=== PATIENT | female | born 1950 | race Caucasian/White ===

== ENCOUNTER → 2017-01-30 | Outpatient (REF) | payer MEDICARE, BC, OTHER ==
[2017-02-01 14:18] LABS: SJOGREN'S ANTI SS-A <0.2 AI (0.0-0.9); SJOGREN'S ANTI SS-B <0.2 AI (0.0-0.9)
== END ==
LOC: M LABNEURO 12:34
PROVIDERS: ATTEND Psychiatry & Neurology Neurology
DX: R79.89 Other specified abnormal findings of blood chemistry (principal)

== ENCOUNTER → 2017-03-22 | Outpatient (CLI) | payer MEDICARE, BC, OTHER ==
--- NOTE | 2017-03-22 08:28 | REP ---
Clinical: Pulmonary nodule. Comparison: Multiple examinations through 07/22/2013. Findings: The bilateral lung aguilar are essentially well-aerated, symmetric and clear. No acute pulmonary consolidation, significant nodule or mass lesion is appreciated. A 7 mm noncalcified lesion in the left upper lobe as well as a small focus of calcification in the posterior left upper lobe adjacent to the fissure remain stable. No pleural effusion/reaction. No pneumothorax. Tracheobronchial tree is patent. Mediastinum demonstrates atherosclerotic changes to the thoracic aorta and coronary arteries without aortic aneurysm or cardiomegaly appreciated. Musculoskeletal structures demonstrate age-related changes without focal osseous abnormality. Upper abdomen demonstrates stable hepatic cysts. Impression: 1. Stable appearance to the 7 mm nodule in the left upper lobe unchanged compared to 2013 and requiring no further investigation. 2. No acute mediastinal or pleuroparenchymal process appreciated. 3. Atherosclerotic changes to the aorta and coronary arteries. 4. Stable hepatic hypodensities likely representing cysts. Signed by Pedro Pablo Allen MD 03/22/2017 08:20 A
== END ==
LOC: M RAD 07:33
PROVIDERS: ATTEND Internal Medicine Pulmonary Disease
DX: R91.8 Other nonspecific abnormal finding of lung field (principal)

== ENCOUNTER 2017-10-15 11:52 | Day surgery (SDC) | payer MEDICARE, BC, OTHER ==
[2017-10-15] MEDS: NS 1,000 ML IV (12:10)
[2017-10-15] MEDS ORDERED: PROPOFOL 200 MG/20 ML VIAL As Ordered (12:45)
== END 2017-10-15 13:32 | disposition home or self-care (01) ==
LOC: M OPP 11:52
DX: Z12.11 Encounter for screening for malignant neoplasm of colon (principal); K64.0 First degree hemorrhoids; D12.3 Benign neoplasm of transverse colon; K57.30 Diverticulosis of large intestine without perforation or abscess without bleeding; Z86.010 Personal history of colon polyps; F17.210 Nicotine dependence, cigarettes, uncomplicated; K21.9 Gastro-esophageal reflux disease without esophagitis; E78.00 Pure hypercholesterolemia, unspecified; I10 Essential (primary) hypertension; J44.9 Chronic obstructive pulmonary disease, unspecified; E05.90 Thyrotoxicosis, unspecified without thyrotoxic crisis or storm; Z79.82 Long term (current) use of aspirin; Z79.899 Other long term (current) drug therapy; Z88.5 Allergy status to narcotic agent; Z88.8 Allergy status to other drugs, medicaments and biological substances; Z85.828 Personal history of other malignant neoplasm of skin; Z90.710 Acquired absence of both cervix and uterus; I83.91 Asymptomatic varicose veins of right lower extremity; Z86.69 Personal history of other diseases of the nervous system and sense organs
CPT/HCPCS: 45380

== ENCOUNTER 2018-03-04 08:34 | Emergency (ER) | payer MEDICARE, BC, OTHER ==
[2018-03-04] MEDS: DERMABOND TOPICAL SKIN ADHESIVE TOP (10:30)
[2018-03-04] MEDS: LIDOCAINE W/EPINEPHRINE 1% 20ML VIAL SC (11:00)
[2018-03-04] MEDS ORDERED: ACETAMINOPHEN 325 MG TAB PO (15:00)
== END 2018-03-04 11:53 | disposition home or self-care (01) ==
LOC: M ED 08:34
DX: S51.811A Laceration without foreign body of right forearm, initial encounter (principal); S50.11XA Contusion of right forearm, initial encounter; W22.8XXA Striking against or struck by other objects, initial encounter; Y92.013 Bedroom of single-family (private) house as the place of occurrence of the external cause; I10 Essential (primary) hypertension; J44.9 Chronic obstructive pulmonary disease, unspecified; E78.5 Hyperlipidemia, unspecified; Z79.899 Other long term (current) drug therapy; Z79.82 Long term (current) use of aspirin; Z88.5 Allergy status to narcotic agent; Z88.8 Allergy status to other drugs, medicaments and biological substances; F17.210 Nicotine dependence, cigarettes, uncomplicated

== ENCOUNTER 2018-03-04 14:07 | Emergency (ER) | payer MEDICARE, BC, OTHER | END 2018-03-04 15:21 | disposition home or self-care (01) | LOC: M ED 14:07 | DX: S51.811A Laceration without foreign body of right forearm, initial encounter (principal); S50.11XA Contusion of right forearm, initial encounter; S51.811D Laceration without foreign body of right forearm, subsequent encounter; S50.11XD Contusion of right forearm, subsequent encounter; W22.8XXA Striking against or struck by other objects, initial encounter; Y92.013 Bedroom of single-family (private) house as the place of occurrence of the external cause; I10 Essential (primary) hypertension; E78.5 Hyperlipidemia, unspecified; J44.9 Chronic obstructive pulmonary disease, unspecified; E05.90 Thyrotoxicosis, unspecified without thyrotoxic crisis or storm; Z79.899 Other long term (current) drug therapy; Z79.82 Long term (current) use of aspirin; Z88.5 Allergy status to narcotic agent; Z88.8 Allergy status to other drugs, medicaments and biological substances | CPT/HCPCS: 99283 ==

== ENCOUNTER → 2018-10-21 | Outpatient (CLI) | payer MEDICARE, BC ==
[~2018-10-21] MED LIST: ASPI1TAB PO; CALCTAB97 PO; DONETAB6 PO; DULE200A IN; EZET1TAB7 PO; FOLI5INJ2 PO; KLON1TAB PO; METO1TAB32 PO; MULTCAP11 PO; VENTAER IN; VITA100067 PO; VITA100072 PO; VIVE0.05 TD; VYTO10TA25 PO
--- NOTE | 2018-10-21 11:53 | REP ---
Clinical: COPD . Comparison: 11/15/2015 . Technique: PA and lateral. Findings: The mediastinum and cardiac silhouette are normal. A rounded density superimposed over the cardiac silhouette on frontal radiograph appears to correspond to a 1.7 cm rounded lesion in the left breast and warrants further investigation. The lung aguilar are clear. No consolidation, effusion, or pneumothorax. Skeletal structures are intact. Impression: 1. No obvious acute cardiopulmonary process. 2. There appears to be a 1.7 cm rounded lesion which on frontal radiograph is superimposed over the cardiac silhouette and left lower lobe which on lateral radiograph may represent rounded lesion in the left breast. Chest CT with contrast and mammogram follow-up may be warranted. Electronically Signed by Pedro Pablo Allen MD 10/21/2018 11:44 A
== END ==
LOC: M RAD 11:01
PROVIDERS: ATTEND Internal Medicine Pulmonary Disease
DX: R91.8 Other nonspecific abnormal finding of lung field (principal); J44.9 Chronic obstructive pulmonary disease, unspecified

== ENCOUNTER → 2018-11-15 | Outpatient (CLI) | payer MEDICARE, BC, OTHER ==
--- NOTE | 2018-11-15 16:11 | REP ---
Low-dose lung screening CT without IV contrast: Comparisons are 03/22/2017 07/22/2013: The study is performed without IV contrast. Images are presented at lung windowing only. There is a known 7 mm left upper lobe lung nodule on image 40, unchanged from 03/22/2017. This measured 6 mm on 07/22/2013 and is likely benign. There is a new ground-glass 7 mm nodule in the left upper lobe on image 34, not present previously. There is a new size solid 7 mm nodule in the right lower lobe on image 55, not present previously. There is a new infiltrate like density in the infrahilar right middle lobe, also not present previously. Infiltrative neoplasm versus infiltrate are possibilities. Correlate clinically. There are no pleural effusions. Impression: The most suspicious nodule is the right lower lobe semi solid 7 mm nodule. This is a category III lung nodule, the probability of malignancy is 110%. Six by follow-up low-dose lung CT is recommended for this lesion. The infiltrate like density in the right middle lobe should be followed based on clinical findings. Electronically Signed by Jacky Javier MD 11/15/2018 04:02 P
== END ==
LOC: M RAD 07:56
PROVIDERS: ATTEND Internal Medicine Pulmonary Disease
DX: R91.1 Solitary pulmonary nodule (principal); F17.210 Nicotine dependence, cigarettes, uncomplicated

== ENCOUNTER 2019-03-20 09:08 | Day surgery (SDC) | payer MEDICARE, BC, OTHER ==
[~2019-03-20] VITALS: Ht 152.4 cm; Wt 38.0 kg
[~2019-03-20 09:08] MED LIST changes: +AREDS PO; -ASPI1TAB PO; +ASPI81TA26 PO; +BALANCED SALT IRRIGATION SOLUTION 500ML BAG (FOR OR EYE MACHINE) As Ordered ONE; +DUOVISC (0.50ML VISCOAT/0.55ML PROVISC) OPHTH KIT As Ordered ONE; +FOLI1TAB11 PO; +LIDOCAINE 0.75%/EPINEPHRINE 0.025% IN BSS 1ML SYR INTRACAMERAL (OR ONLY) As Ordered ONE; +MULTCAP PO; +OFLOXACIN 0.3 % (OCUFLOX) OPTH SOL 5ML OS ONE; +OYST1TAB PO; +PHENYLEPHRINE 2.5% OPHTH SOL 2ML OS ONE; +POVIDONE-IODINE 5% OPHTH PREP SOL 30ML As Ordered ONE; +PROPARACAINE 0.5% OPHTH SOL 15ML OS ONE; +TROPICAMIDE 1% OPHTH SOLN 2ML OS ONE; +VITA100018 PO; -VITA100072 PO; +VITAD1000T PO
[2019-03-20] MEDS ORDERED: CEFUROXIME 1MG/0.1ML INTRACAMERAL INJ ONE (09:09)
[2019-03-20] MEDS ORDERED: fentaNYL 100 MCG/2 ML INJECTION (J3010) As Ordered ONE (10:30)
[2019-03-20] MEDS ORDERED: MIDAZOLAM INJ 2 MG/2 ML VIAL (J2250) As Ordered ONE (10:30)
[2019-03-20 11:24] VITALS: BP 111/56
--- NOTE | 2019-03-21 08:24 | RO ---
DATE OF PROCEDURE: 03/20/2019 PREOPERATIVE DIAGNOSIS: 1. Visually significant nuclear sclerotic cataract left eye. POSTOPERATIVE DIAGNOSIS: 1. Visually significant nuclear sclerotic cataract left eye. PROCEDURE: 1. Cataract extraction with use of phacoemulsification and placement of intraocular lens, AU00T0, 25.0 D, left eye. SURGEON: Reddy Ardon DO MAINTENANCE PLUMBER: None. ANESTHESIA: Local with monitored anesthesia care (MAC). COMPLICATIONS: None. POSTOPERATIVE CONDITION: Stable. INDICATIONS FOR SURGERY: 1. Blurred vision affecting patients activities of daily living. DESCRIPTION OF PROCEDURE: The patient was seen in the preoperative area and properly identified. The correct operative eye was identified and marked. The patient received topical anesthetic, antibiotics, and topical dilating drops. The patient was then transferred to the operating room. The correct side was re-identified, and a time-out was performed. The eye was prepped and draped in a sterile fashion. The eyelids were isolated with Tegaderm tape, and the lids were held open with an adjustable speculum. A 1.0 mm paracentesis incision was made. Intraocular preservative-free Shugarcaine was then injected into the anterior chamber. Viscoelastic was then injected into the anterior chamber through the paracentesis. Using a 2.4 mm sharp-tipped keratome, the anterior chamber was entered via a temporal clear cornea incision. A continuous curvilinear capsulorrhexis was created with Utrata forceps. Hydrodissection was performed with balanced salt solution (BSS) on a blunt cannula until the nucleus was able to rotate freely. The crystalline lens was phacoemulsified and aspirated. Irrigation/aspiration was used to remove the cortical material. Cohesive viscoelastic was placed into the capsular bag to deepen it. The implant was placed into the capsular bag and allowed to unfold. Placement was confirmed by visualizing the anterior capsulorrhexis. Irrigation/aspiration was used to remove the viscoelastic. The clear corneal incision was hydrated with BSS on a blunt cannula. The lens was well positioned. The incisions were then tested for leaks and found to be negative. The eye was then palpated for appropriate pressure and adjusted accordingly with BSS. The eyelid speculum was then carefully removed. A shield was placed over the eye. The patient tolerated the procedure well and was discharged to the recovery unit in a stable condition.
== END 2019-03-20 11:45 | disposition home or self-care (01) ==
LOC: M SDC 09:08
PROVIDERS: ATTEND Ophthalmology
DX: H25.12 Age-related nuclear cataract, left eye (principal); I10 Essential (primary) hypertension; E78.5 Hyperlipidemia, unspecified; E05.90 Thyrotoxicosis, unspecified without thyrotoxic crisis or storm; K21.9 Gastro-esophageal reflux disease without esophagitis; J44.9 Chronic obstructive pulmonary disease, unspecified; Z88.8 Allergy status to other drugs, medicaments and biological substances; Z79.82 Long term (current) use of aspirin; Z79.899 Other long term (current) drug therapy; Z92.3 Personal history of irradiation; F17.210 Nicotine dependence, cigarettes, uncomplicated
CPT/HCPCS: 66984; J2250; J3010; V2632

== ENCOUNTER 2019-05-01 10:45 | Day surgery (SDC) | payer MEDICARE, BC, OTHER ==
[~2019-05-01] VITALS: Ht 152.4 cm; Wt 37.6 kg
[~2019-05-01 10:45] MED LIST changes: +CEFUROXIME 1MG/0.1ML INTRACAMERAL INJ As Ordered ONE; +IRON65TA2 PO; -LIDOCAINE 0.75%/EPINEPHRINE 0.025% IN BSS 1ML SYR INTRACAMERAL (OR ONLY) As Ordered ONE; +MIDAZOLAM INJ 2 MG/2 ML VIAL (J2250) As Ordered ONE; +OFLOXACIN 0.3 % (OCUFLOX) OPTH SOL 5ML OD ONE; -OFLOXACIN 0.3 % (OCUFLOX) OPTH SOL 5ML OS ONE; +PHENYLEPHRINE 2.5% OPHTH SOL 2ML OD ONE; -PHENYLEPHRINE 2.5% OPHTH SOL 2ML OS ONE; +PROPARACAINE 0.5% OPHTH SOL 15ML OD ONE; -PROPARACAINE 0.5% OPHTH SOL 15ML OS ONE; +TROPICAMIDE 1% OPHTH SOLN 2ML OD ONE; -TROPICAMIDE 1% OPHTH SOLN 2ML OS ONE; +fentaNYL 100 MCG/2 ML INJECTION (J3010) As Ordered ONE
[2019-05-01] MEDS ORDERED: LIDOCAINE 2% W/EPIN INJ 20ML **PRES FREE XX ONE (12:38)
[2019-05-01 13:05] VITALS: BP 143/73
--- NOTE | 2019-05-05 11:13 | RO ---
DATE OF PROCEDURE: 05/01/2019 PREOPERATIVE DIAGNOSIS: 1. Visually significant nuclear sclerotic cataract right eye. POSTOPERATIVE DIAGNOSIS: 1. Visually significant nuclear sclerotic cataract right eye. PROCEDURE: 1. Cataract extraction with use of phacoemulsification and placement of intraocular lens, AU00T0 25 D, right eye. SURGEON: Reddy Ardon DO AQUATIC PERFORMER: None. ANESTHESIA: Local with monitored anesthesia care (MAC). COMPLICATIONS: None. POSTOPERATIVE CONDITION: Stable. INDICATIONS FOR SURGERY: 1. Blurred vision affecting patients activities of daily living. DESCRIPTION OF PROCEDURE: The patient was seen in the preoperative area and properly identified. The correct operative eye was identified and marked. The patient received topical anesthetic, antibiotics, and topical dilating drops. The patient was then transferred to the operating room. The correct side was re-identified, and a time-out was performed. The eye was prepped and draped in a sterile fashion. The eyelids were isolated with Tegaderm tape, and the lids were held open with an adjustable speculum. A 1.0 mm paracentesis incision was made. Intraocular preservative-free Shugarcaine was then injected into the anterior chamber. Viscoelastic was then injected into the anterior chamber through the paracentesis. Using a 2.4 mm sharp-tipped keratome, the anterior chamber was entered via a temporal clear cornea incision. A continuous curvilinear capsulorrhexis was created with Utrata forceps. Hydrodissection was performed with balanced salt solution (BSS) on a blunt cannula until the nucleus was able to rotate freely. The crystalline lens was phacoemulsified and aspirated. Irrigation/aspiration was used to remove the cortical material. Cohesive viscoelastic was placed into the capsular bag to deepen it. The implant was placed into the capsular bag and allowed to unfold. Placement was confirmed by visualizing the anterior capsulorrhexis. Irrigation/aspiration was used to remove the viscoelastic. The clear corneal incision was hydrated with BSS on a blunt cannula. The lens was well positioned. The incisions were then tested for leaks and found to be negative. The eye was then palpated for appropriate pressure and adjusted accordingly with BSS. The eyelid speculum was then carefully removed. A shield was placed over the eye. The patient tolerated the procedure well and was discharged to the recovery unit in a stable condition. HEATHER
== END 2019-05-01 13:19 | disposition home or self-care (01) ==
LOC: M SDC 10:45
PROVIDERS: ATTEND Ophthalmology
DX: H25.11 Age-related nuclear cataract, right eye (principal); I10 Essential (primary) hypertension; J44.9 Chronic obstructive pulmonary disease, unspecified; Z88.8 Allergy status to other drugs, medicaments and biological substances; Z92.3 Personal history of irradiation; F17.210 Nicotine dependence, cigarettes, uncomplicated; Z79.82 Long term (current) use of aspirin; Z79.899 Other long term (current) drug therapy
CPT/HCPCS: 66984; J2250; J3010; V2632

== ENCOUNTER → 2019-09-01 | Outpatient (CLI) | payer MEDICARE, BC, OTHER ==
[~2019-09-01] MED LIST changes: -BALANCED SALT IRRIGATION SOLUTION 500ML BAG (FOR OR EYE MACHINE) As Ordered ONE; -CEFUROXIME 1MG/0.1ML INTRACAMERAL INJ As Ordered ONE; +CHOL100029 PO; -DUOVISC (0.50ML VISCOAT/0.55ML PROVISC) OPHTH KIT As Ordered ONE; -EZET1TAB7 PO; +EZET1TAB8 PO; -MIDAZOLAM INJ 2 MG/2 ML VIAL (J2250) As Ordered ONE; -OFLOXACIN 0.3 % (OCUFLOX) OPTH SOL 5ML OD ONE; -PHENYLEPHRINE 2.5% OPHTH SOL 2ML OD ONE; -POVIDONE-IODINE 5% OPHTH PREP SOL 30ML As Ordered ONE; -PROPARACAINE 0.5% OPHTH SOL 15ML OD ONE; -TROPICAMIDE 1% OPHTH SOLN 2ML OD ONE; -VITAD1000T PO; -fentaNYL 100 MCG/2 ML INJECTION (J3010) As Ordered ONE
--- NOTE | 2019-09-01 10:21 | REP ---
CT CHEST WITHOUT CONTRAST: HISTORY: Other nonspecific abnormal finding of the lung field. COMPARISON STUDY: Most recent comparison chest CT study in the patient's electronic x-ray jacket is from February 11, 2019 and the most remote is dated June 04, 2007. CT FINDINGS: Vascular calcification is noted. No pleural or pericardial effusion is seen. There are hepatic cysts again noted unchanged. No adrenal lesion is seen. No bony abnormality is seen. There are patchy areas of peribronchovascular alveolar consolidation principally affecting the left lower lobe but with smaller areas noted in the right middle lobe distribution and right lower lobe as well as lingular areas consistent with pneumonia. These changes are new. There is a well circumscribed 8 mm nodule in the left upper lobe on page 48 of 110 in series 201 of today's study. This has very gradually enlarged over the year since the 2012 prior study when it was measured at 5.5 mm. In the posterior segment of the left upper lobe, there are two tiny nodules adjacent to one another measuring 5 mm in aggregate greatest dimension. These are also visible dating back to 2012 and are perhaps only very slightly larger. No other significant pulmonary nodule is appreciated. There is no evidence of mass or adenopathy appreciated. IMPRESSION: 1. Patchy new alveolar infiltrates consistent with pneumonia, most prominently affecting the left lower lobe. 2. Previously noted left upper lobe nodules show very gradual enlargement. No new pulmonary nodule is appreciated. Electronically Signed by Todd Abad MD 09/01/2019 12:14 P
== END ==
LOC: M RAD 07:41
PROVIDERS: ATTEND Internal Medicine Pulmonary Disease
DX: R91.8 Other nonspecific abnormal finding of lung field (principal)

== ENCOUNTER → 2019-11-25 | Outpatient (CLI) | payer MEDICARE, BC, OTHER ==
--- NOTE | 2019-11-25 17:33 | REPVR ---
PROCEDURE INFORMATION: Exam: CT Chest Without Contrast Exam date and time: 11/25/2019 1:46 PM Age: 69 years old Clinical indication: Chest pain; Additional info: Non specific abnormal finding of lung field TECHNIQUE: Imaging protocol: Computed tomography of the chest without contrast. 3D rendering: MIP and/or 3D reconstructed images were created by the technologist. Radiation optimization: All CT scans at this facility use at least one of these dose optimization techniques: automated exposure control; mA and/or kV adjustment per patient size (includes targeted exams where dose is matched to clinical indication); or iterative reconstruction. COMPARISON: CT Chest without contrast 09/01/2019 8:01 AM FINDINGS: Lungs: 7 mm noncalcified peripheral pulmonary parenchymal nodule in the left upper lobe. Multiple 1-2 mm peripheral noncalcified pulmonary parenchymal nodules demonstrated (for example series through 1 image 13, image 20, image 43). These are likely postinflammatory. Well inflated lungs consistent with COPD. Pleural space: Unremarkable. No pneumothorax. No pleural effusion. Heart: There is moderate atherosclerotic calcification of the coronary arteries. Aorta: The aorta demonstrates mild atherosclerotic calcification. Diffusely ectatic thoracic aorta. Lymph nodes: Unremarkable. No enlarged lymph nodes. Liver: Multiple hepatic cysts measure up to 2 cm in the right lobe of the liver. No complex features. Bones/joints: Unremarkable. No acute fracture. Soft tissues: Unremarkable. IMPRESSION: 1. 7 mm noncalcified peripheral pulmonary parenchymal nodule in the left upper lobe. For both low risk and high risk patients, consider CT at 3 months, PET/CT or biopsy. (Broderick et al., Fleischner Society, 2017) 2. Multiple 1-2 mm peripheral noncalcified pulmonary parenchymal nodules demonstrated (for example series through 1 image 13, image 20, image 43). These are likely postinflammatory. Follow-up as described in impression 1. 3. Coronary artery disease. 4. Ectatic atherosclerotic thoracic aorta. 5. COPD. Electronically signed by: Ruiz Miller On 11/25/2019 17:33:33 PM
== END ==
LOC: M RAD 13:26
PROVIDERS: ATTEND Internal Medicine Pulmonary Disease
DX: R91.8 Other nonspecific abnormal finding of lung field (principal); J44.9 Chronic obstructive pulmonary disease, unspecified; I25.10 Atherosclerotic heart disease of native coronary artery without angina pectoris; I77.810 Thoracic aortic ectasia

== ENCOUNTER → 2020-04-14 | Outpatient (CLI) | payer BC, OTHER ==
--- NOTE | 2020-04-14 10:02 | REP ---
Clinical: Follow-up pulmonary nodule. Technique: Axial noncontrast images from the thoracic inlet to the upper abdomen with coronal and sagittal re-formations. Comparison: 11/25/2019, 11/15/2018, 03/22/2017. Findings: 8.5 mm noncalcified nodule in the anterior left upper lobe (image 44) remains relatively similar as compared through 2017. Scattered chronic relatively stable subtle pleuroparenchymal changes including small area of non solid opacity in the periphery of the left upper lobe (image 38) and very small scattered densities measuring up to 2 mm remain essentially unchanged. No new significant consolidation, nodule or mass lesion appreciated. No pleural effusion. No pneumothorax. Small amount of inspissated material suggested within the trachea and right mainstem bronchus. No obvious adenopathy is appreciated although evaluation is somewhat limited due to the lack of contrast enhancement. Stable appearance and atherosclerotic changes to the thoracic aorta and coronary arteries noted. Musculoskeletal structures demonstrate age-related changes without acute osseous abnormality. Visualized portions of the liver again demonstrate hypodensities suggesting cysts. Impression: Relatively stable pulmonary parenchymal changes. Noncalcified nodule in the anterior left upper lobe measuring approximately 8.5 mm likely represents a noncalcified granuloma with minimal gradual increase size as compared through 2016. Electronically Signed by Pedro Pablo Allen MD 04/14/2020 09:53 A
== END ==
LOC: M RAD 08:35
PROVIDERS: ATTEND Internal Medicine Pulmonary Disease
DX: R91.8 Other nonspecific abnormal finding of lung field (principal)

== ENCOUNTER → 2020-08-30 | Outpatient (CLI) | payer SELFPAY | LOC: M LABSMTC 14:14 | PROVIDERS: ATTEND Pediatrics | DX: Z20.828 Contact with and (suspected) exposure to other viral communicable diseases (principal) ==

== ENCOUNTER → 2021-04-25 | Outpatient (CLI) | payer MEDICARE, BC, OTHER ==
[~2021-04-25] MED LIST changes: -EZET1TAB8 PO; +EZET1TAB98 PO
--- NOTE | 2021-04-25 09:46 | REP ---
INDICATION: NICOTINE DEPENDENCE. COMPARISON: Multiple the latest 04/14/2020 a standard noncontrast enhanced helical CT of the chest TECHNIQUE: Axial noncontrast images from the thoracic inlet to the upper abdomen using low-dose lung screening technique (LDCT). As per the protocol only lung window images were sent to the read station for interpretation. FINDINGS: The left upper lobe nodule is completely stable. The nodule seen in the apicoposterior segment of the left upper lobe is unchanged. There is a new curvilinear density in the medial basal segment of the left lower lobe. The lung aguilar are otherwise stable. Grossly, the mediastinum and pulmonary iman are unchanged. Grossly, the imaged upper abdomen and imaged osseous structures are unchanged. IMPRESSION: 1. Stable left upper lobe nodule. 2. There is a stable nodule in the apicoposterior segment of the left upper lobe. 3. New curvilinear density in the medial basal segment of the left lower lobe likely subsegmental atelectatic change or fibrotic change. 4. Lung rads category 2 as per the revised Fleischner society criteria <Electronically signed by Jordan Smith > 04/25/21 [id number]
== END ==
LOC: M RAD 08:36
PROVIDERS: ATTEND Internal Medicine Pulmonary Disease
DX: F17.218 Nicotine dependence, cigarettes, with other nicotine-induced disorders (principal)

== ENCOUNTER → 2021-10-31 | Outpatient (CLI) | payer MEDICARE, BC, OTHER ==
[~2021-10-31] MED LIST changes: +DONE-1 PO; -DONETAB6 PO
== END ==
LOC: M RAD 09:14
PROVIDERS: ATTEND Internal Medicine Pulmonary Disease
DX: R91.8 Other nonspecific abnormal finding of lung field (principal)

== ENCOUNTER → 2022-11-23 | Outpatient (CLI) | payer MEDICARE, BC, OTHER ==
[~2022-11-23] MED LIST changes: -DULE200A IN; +EZET-20 PO; +MOME13HF7 IN; -VYTO10TA25 PO
== END ==
LOC: M RAD 09:41
PROVIDERS: ATTEND Internal Medicine Pulmonary Disease
DX: J98.19 Other pulmonary collapse (principal); R91.1 Solitary pulmonary nodule; Z87.891 Personal history of nicotine dependence

== ENCOUNTER → 2022-12-04 | Outpatient (CLI) | payer MEDICARE, BC, OTHER ==
[~2022-12-04] MED LIST changes: +SPIR1CAP INH; +VITA100093 PO; +VITAMIN B WITH C PO; +VITMTA PO
== END ==
LOC: M LABSMTC 07:54
PROVIDERS: ATTEND Anesthesiology
DX: Z01.812 Encounter for preprocedural laboratory examination (principal); R91.8 Other nonspecific abnormal finding of lung field; Z20.822 Contact with and (suspected) exposure to COVID-19

== ENCOUNTER → 2022-12-04 | Outpatient (CLI) | payer MEDICARE, BC, OTHER ==
[2022-12-04 13:31] LABS: INR 1.05; PROTHROMBIN TIME 13.9 SECONDS (12.5-14.5)
[2022-12-04 13:32] LABS: PARTIAL THROMBOPLASTIN TIME 36.1 SECONDS (24.8-34.2)
[2022-12-04 14:22] LABS: PLATELET COUNT, AUTOMATED 381 10^3/uL (150-450)
== END ==
LOC: M PLALAB 08:57
PROVIDERS: ATTEND Internal Medicine Pulmonary Disease
DX: R91.8 Other nonspecific abnormal finding of lung field (principal)

== ENCOUNTER 2022-12-06 11:54 | Day surgery (SDC) | payer MEDICARE, BC, OTHER ==
[~2022-12-06] VITALS: Ht 157.5 cm; Wt 45.4 kg
[~2022-12-06 11:54] MED LIST changes: +LIDOCAINE 2% 100MG/5ML SDV (FOR ANES.) As Ordered ONE; +ONDANSETRON 4MG 2ML VIAL As Ordered ONE; +ROCURONIUM BROMIDE 50MG/5ML VIAL As Ordered ONE; +SUGAMMADEX SODIUM 500 MG/5 ML VIAL (BRIDION) As Ordered ONE; +propofoL 200 MG/20 ML VIAL As Ordered ONE
[2022-12-06] MEDS ORDERED: LIDOCAINE 1% SDV 5ML VIAL SC PRN (12:10)
[2022-12-06] MEDS ORDERED: LR 1,000 ML IV SCH ×2 (12:10→13:40)
[2022-12-06] MEDS ORDERED: CETACAINE SPRAY 5GM As Ordered ONE (12:34)
[2022-12-06] MEDS ORDERED: fentaNYL 100 MCG/2 ML INJECTION As Ordered ONE (12:54)
[2022-12-06] MEDS ORDERED: ACETAMINOPHEN 1000MG 100ML IV BAG As Ordered ONE (13:18)
[2022-12-06] MEDS ORDERED: ePHEDrine SULFATE 25 MG/5 ML(5MG/ML) SYRINGE As Ordered ONE (13:21)
[2022-12-06] MEDS ORDERED: ONDANSETRON 4MG 2ML VIAL IV PRN (13:40)
[2022-12-06] MEDS ORDERED: fentaNYL 100 MCG/2 ML INJECTION IV PRN (13:40)
[2022-12-06] MEDS ORDERED: oxyCODONE 5MG TAB PO PRN (13:40)
[2022-12-06 14:39] VITALS: BP 103/55
[2022-12-07] MEDS ORDERED: ALBUTEROL SULFATE 2.5MG/0.5ML INH NEB SOLN INH ONE (06:00)
[2022-12-07] MEDS ORDERED: LIDOCAINE PRES-FREE 2% 10ML AMP INH ONE (06:00)
== END 2022-12-06 14:54 | disposition home or self-care (01) ==
LOC: M SDC 11:54
PROVIDERS: ATTEND Internal Medicine Pulmonary Disease
DX: J44.9 Chronic obstructive pulmonary disease, unspecified (principal); I89.9 Noninfective disorder of lymphatic vessels and lymph nodes, unspecified
CPT/HCPCS: 31629; 31654; 71045; 88173; 88305; J0131; J1100; J2405; J3010

== ENCOUNTER → 2023-03-06 | Outpatient (CLI) | payer MEDICARE, BC, OTHER ==
[~2023-03-06] MED LIST changes: -LIDOCAINE 2% 100MG/5ML SDV (FOR ANES.) As Ordered ONE; -ONDANSETRON 4MG 2ML VIAL As Ordered ONE; -ROCURONIUM BROMIDE 50MG/5ML VIAL As Ordered ONE; -SUGAMMADEX SODIUM 500 MG/5 ML VIAL (BRIDION) As Ordered ONE; -propofoL 200 MG/20 ML VIAL As Ordered ONE
== END ==
LOC: M RAD 07:15
PROVIDERS: ATTEND Internal Medicine Pulmonary Disease
DX: R91.8 Other nonspecific abnormal finding of lung field (principal)

== ENCOUNTER → 2023-04-13 | Outpatient (CLI) | payer MEDICARE, BC, OTHER | LOC: M WHC 10:49 | PROVIDERS: ATTEND Physician Assistant | DX: Z12.31 Encounter for screening mammogram for malignant neoplasm of breast (principal) ==

== ENCOUNTER → 2024-01-24 | Outpatient (CLI) | payer MEDICARE, BC, OTHER ==
[~2024-01-24] MED LIST changes: -KLON1TAB PO; +KLON1TAB13 PO
== END ==
LOC: M PLAIMG 12:51
PROVIDERS: ATTEND Internal Medicine Pulmonary Disease
DX: R91.8 Other nonspecific abnormal finding of lung field (principal)